=== PATIENT | male | born 1955 | race Caucasian/White ===

== ENCOUNTER → 2018-08-08 | Outpatient (CLI) | payer BC ==
--- NOTE | 2018-08-08 22:14 | MR ---
EXAMINATION TYPE: MR brain wo/w con DATE OF EXAM: 08/08/2018 COMPARISON: None at this institution or [facility] per file room. HISTORY: Optic neuritis, Giant cell arteritis TECHNIQUE: Multiplanar, multisequence images of the brain and brainstem is performed without and with IV contras t, utilizing 10 mL intravenous Gadavist . FINDINGS: Diffusion weighted images demonstrate no evidence of a recent infarct or other diffusion ab normality. There is no worrisome extra-axial fluid collection. Mild ventricular and sulcal prominenc e is present. Occasional scattered focus of T2 hyperintensity is seen throughout the white matter keith aterally. Approximately 6-10 small scattered lesions are seen. Midline structures demonstrate normal morphology. The craniocervical junction appears within normal limits. Post contrast images demonstrate no abnormal enhancement. The dural venous sinuses appear pa tent. Moderate mucosal thickening involving the ethmoid sinuses bilaterally is present. [id number] mu cosal thickening involving inferior maxillary sinuses is seen. Mild mucosal thickening involving left frontal sinus is noted. The globes are intact bilaterally. No obvious suspicious enhancement or intraconal mass identified on this study, nonorbital protocol. IMPRESSION: 1. Mild diffuse age-related cerebral atrophy and chronic small vessel ischemic change. 2. Mild to moderate chronic paranasal sinus disease as detailed above
== END ==
LOC: RADMRIMAIN 07:58
PROVIDERS: ATTEND Ophthalmology
DX: G31.1 Senile degeneration of brain, not elsewhere classified (principal); I67.82 Cerebral ischemia
CPT/HCPCS: 85652; 86140; 70553; A9585

== ENCOUNTER → 2018-09-07 | Outpatient (CLI) | payer BC ==
--- NOTE | 2018-09-07 08:12 | XR ---
EXAMINATION TYPE: XR sinus DATE OF EXAM: 09/07/2018 CLINICAL HISTORY: Sinusitis TECHNIQUE: Wilhelm, Hollis, and lateral image of the skull are obtained. COMPARISON: None. FINDINGS: Mild to moderate mucosal thickening is seen within the maxillary sinuses, right slightly gr eater than left. Mastoid air cells appear well aerated. Frontal sinuses and sphenoid sinuses also chante ear well aerated. Mild mucosal thickening is seen within the ethmoid sinuses. Dental fillings are inc identally noted. Osseous structures appear intact. IMPRESSION: Mild to moderate mucosal thickening in the maxillary sinuses and mild mucosal thickening in the ethmoid sinuses.
== END | disposition home or self-care (01) ==
LOC: RADXRMAIN 07:49
PROVIDERS: ATTEND Family Medicine
DX: J34.89 Other specified disorders of nose and nasal sinuses (principal); J32.9 Chronic sinusitis, unspecified
CPT/HCPCS: 70220

== ENCOUNTER → 2018-10-05 | Outpatient (CLI) | payer BC ==
--- NOTE | 2018-10-05 08:13 | CT ---
EXAMINATION TYPE: CT sinus wo con DATE OF EXAM: 10/05/2018 COMPARISON: None HISTORY: Optic nerve swelling and chronic sinusitis CT DLP: [address] of the paranasal sinuses was performed in the axial and coronal planes. Bone and soft tissue settings are submitted. The paranasal sinuses demonstrate normal aeration and development. The paranasal sinuses are free of air fluid level. There is mucosal thickening involving the maxilla ry sinuses mild in degree. There is also opacification of the various ethmoid air cells. Mild left fr ontal chronic sinusitis noted as well. Sphenoid sinus also demonstrates mild mucosal thickening. The osteal meatal units are patent bilaterally. The nasal septum is midline. No bony destructive changes are seen within the field of view. IMPRESSION: Mild chronic pansinusitis.
== END | disposition home or self-care (01) ==
LOC: RADCTMAIN 07:25
PROVIDERS: ATTEND Otolaryngology
DX: J32.4 Chronic pansinusitis (principal)
CPT/HCPCS: 70486

== ENCOUNTER → 2018-11-27 | Outpatient (CLI) | payer BC ==
[2018-11-27 09:22] LABS: Basophils % (A) 1 %; Eosinophils # (A) 0.4 k/uL (0-0.7); Eosinophils % (A) 6 %; HCT 47.8 % (39.0-53.0); HGB 15.7 gm/dL (13.0-17.5); Lymphocytes # (A) 1.7 k/uL (1.0-4.8); Lymphocytes % (A) 27 %; MCH 30.6 pg (25.0-35.0); MCHC 32.8 g/dL (31.0-37.0); MCV 93.3 fL (80.0-100.0); Monocytes # (A) 0.3 k/uL (0-1.0); Monocytes % (A) 4 %; Neutrophils # (A) 3.8 k/uL (1.3-7.7); Neutrophils % (A) 61 %; Platelet Count 210 k/uL (150-450); RBC 5.12 m/uL (4.30-5.90); RDW 15.1 % (11.5-15.5); WBC 6.3 k/uL (3.8-10.6)
[2018-11-27 14:57] LABS: Erythrocyte Sedimentation Rate 2 mm/hr (0-15)
[2018-11-27 18:11] LABS: Rheumatoid Factor 4 IU/mL (0-15)
[2018-11-28 03:18] LABS: Toxoplasma Antibody (IgG) <3.0 IU/mL (<7.2); Toxoplasma Antibody (IgM) <3.0 AU/mL (<8.0)
[2018-11-28 11:48] LABS: C-ANCA <1:20 Titer (<1:20)
[2018-11-28 12:00] LABS: APTT 37 Sec(s) (<43); Dilute Russell Viper Venom 41 Sec(s) (<44)
[2018-11-28 15:07] LABS: Angiotensin-1 Converting Enz. 49 U/L (8-52)
== END | disposition home or self-care (01) ==
LOC: LABWHC1 08:26
PROVIDERS: ATTEND Ophthalmology
DX: H46.8 Other optic neuritis (principal)
CPT/HCPCS: 36415; 82164; 85025; 85549; 85613; 85652; 85730; 86038; 86140; 86255; 86431; 86618; 86777; 86778; 86780